=== PATIENT | male | born 1965 | race Caucasian/White ===

== ENCOUNTER 2016-11-30 10:10 | Emergency (ER) | payer OTHER ==
[2016-11-30 10:20] VITALS: BMI 39.1
[2016-11-30 11:14] LABS: EOSINOPHIL 0.3 % (0-4.5); MCH 30.5 pg (25.7-33.7); MCHC 33.8 g/dl (32.0-35.9); MEAN CELL VOLUME 90.3 fl (80-96); MEAN PLT VOLUME 7.6 fl (7.5-11.1); NEUTROPHILS 72.5 % (42.8-82.8); PLATELET COUNT 229 K/MM3 (134-434); RDW 13.9 % (11.9-15.9); WHITE BLOOD COUNT 9.8 K/mm3 (4.0-10.0)
[2016-11-30 11:47] LABS: ALBUMIN 3.8 g/dl (3.4-5.0); ALK PHOS 61 U/L (45-117); ANION GAP 8 (8-16); BILIRUBIN,TOTAL 0.8 mg/dL (0.2-1.0); CALCIUM 8.7 mg/dL (8.5-10.1); CO2 27 mmol/L (21-32); CREATININE 1.4 mg/dL (0.7-1.3); GLUCOSE,RANDOM 223 mg/dL (74-106); SGOT/AST 23 U/L (15-37); SGPT/ALT 48 U/L (12-78); TOT PROT 7.2 g/dl (6.4-8.2)
--- NOTE | 2016-11-30 12:11 | PDOC ---
History of Present Illness - General Chief Complaint: Pain Stated Complaint: ABD PAIN Time Seen by Provider: 11/30/16 11:03 - History of Present Illness Initial Comments: 11/30/16 12:10 Patient is a 51 year old male with history of DM2, htn and cholescysttis s/p cholecystectomy presents with 2 days of right upper quadrant pain and associated nausea and vomiting. Pain started as a burning right lower quadrant pain that woke patient from sleep. The pain moved to the right upper/epigastric region. It is currently episodic pressure, 7/10 at the worst, positional, improved with sitting or walking or use of a heating pad, worse when supine 11/30/16 12:33 Past History - Past Medical History Allergies/Adverse Reactions: Allergies Allergy/AdvReac Type Severity Reaction Status Date / Time No Known Allergies Allergy Verified 11/30/16 10:20 Home Medications: Ambulatory Orders Amlodipine/Atorvastatin [Amlodipine-Atorvast 10-40 mg] 1 each PO DAILY 11/30/16 Aspirin [ASA -] 81 mg PO DAILY 11/30/16 Carvedilol 12.5 mg PO BID 11/30/16 Ibuprofen 800 mg PO Q6H PRN #30 tablet 11/30/16 Metformin HCl 500 mg PO BID 11/30/16 Oxycodone HCl/Acetaminophen [Percocet 5-325 mg Tablet] 1 tab PO Q6H PRN #10 tablet MDD 4 11/30/16 Tamsulosin HCl [Flomax] 0.4 mg PO DAILY #14 cap.er.24h 11/30/16 Diabetes: Yes HTN: Yes - Surgical History Cholecystectomy: Yes - Psycho/Social/Smoking Cessation Hx Anxiety: No Suicidal Ideation: No Smoking History: Never smoked Hx Alcohol Use: Yes (SOCIAL) Drug/Substance Use Hx: No Substance Use Type: None *Physical Exam - Vital Signs Last Vital Signs Temp Pulse Resp BP Pulse Ox 99.1 F 91 H 20 144/82 98 11/30/16 10:17 11/30/16 10:17 11/30/16 10:17 11/30/16 10:11/30/16 10:17 ED Treatment Course - LABORATORY CBC & Chemistry Diagram: 11/30/16 11:00 11/30/16 11:00 - ADDITIONAL ORDERS Additional order review: Laboratory Results 11/30/16 11:00 Sodium 136 Potassium 4.0 Chloride 101 Carbon Dioxide 27 Anion Gap 8 BUN 18 Creatinine 1.4 H Creat Clearance w eGFR 53.64 Random Glucose 223 H Calcium 8.7 Total Bilirubin 0.8 AST 23 ALT 48 Alkaline Phosphatase 61 Total Protein 7.2 Albumin 3.8 Lipase 133 11/30/16 11:00 RBC 4.75 MCV 90.3 MCHC 33.8 RDW 13.9 MPV 7.6 Neutrophils % 72.5 Lymphocytes % 16.6 Monocytes % 9.6 Eosinophils % 0.3 Basophils % 1.0 - RADIOLOGY Radiograph Interpretation: 12/01/16 16:26 Impression: 4.5 mm obstructing stone in the proximal right ureter with mild right renal hydronephrosis and moderate stranding of the perinephric fat. L5-S1 mild degenerative disc disease with mild right paracentral and lateral disc bulge and posterior spur formation impinging right L5 nerve root. A preliminary report was forwarded by the [facility] service, [facility] [employer] PROVIDER Medical Decision Making - Medical Decision Making 11/30/16 12:57 51 yo male with RUQ/RLQ abdominal pain for two days with associated N/V, madie 10 years ago, t 99.1, patient has been vomiting and not eating for over a day. ddx: pancreatitis, appy, obstruction plan: CBC, CMP, Lipase Fluid bolus CBC: wnl, No leukocytosis Lipase wnl (133) Less concerning for infection CMP: elevated CR (1.4) in context of DM2, Glucose 223 CT with contrast 11/30/16 14:33 UA negative for infection, 4 RBC 11/30/16 18:09 Possible renal stone *DC/Admit/Observation/Transfer Diagnosis at time of Disposition: Renal colic, Renal calculus - Discharge Dispostion Disposition: HOME Condition at time of disposition: Improved Admit: No - Prescriptions Prescriptions: Tamsulosin HCl [Flomax] 0.4 mg PO DAILY #14 cap.er.24h Ibuprofen 800 mg PO Q6H PRN #30 tablet PRN Reason: Pain Oxycodone HCl/Acetaminophen [Percocet 5-325 mg Tablet] 1 tab PO Q6H PRN #10 tablet MDD 4 PRN Reason: Pain - Referrals Referrals: Shaw Fitzgerald MD [Primary Care Provider] - Carlos Alberto Delarosa MD [Staff Physician] - - Patient Instructions Printed Discharge Instructions: DI for Kidney Stones Additional Instructions: Thank you for trusting us with your health care today. I hope we were able to meet your expectations. The tests we ran show that you have a 5 mm kidney stone. As we discussed, stones this size will typically pass on their own. We are giving you prescriptions for some medication, flomax, that will help the stone pass and some other medication to help with the pain. You should first try the ibuprofen and if this fails to control your pain you can use the percocet. You should call and make an appointment with Dr. Reinaldo Delarosa ([phone]) in the next week for a follow up appointment. I have provided the report from the CT scan that you can provide to him. If you are unable to control your pain or you develop fever or become confused please return to the emergency room immediately. It has been our pleasure caring for you today and wish you the best of health. - Attestations Physician Attestion: 11/30/16 19:46 I, Dr. Jean Pierre Garcia, attest that this document has been prepared under my direction and personally reviewed by me in its entirety. I further attest, that it accurately reflects all work, treatment, procedures and medical decision -making performed by me.
--- NOTE | 2016-11-30 12:38 | PDOC ---
Attending Attestation - Resident Resident Name: Jean Pierre Garcia - ED Attending Attestation I have performed the following: I have examined & evaluated the patient, The case was reviewed & discussed with the resident, I agree w/resident's findings & plan, Exceptions are as noted - HPI HPI: 51 yo M history DM, HTN, madie s/p cholecystectomy (10 years ago), presents with RUQ abdominal pain, N/V for past 2 days. Pain started as RLQ, but is radiating to the RUQ. Described as a pressure, worse with position changes. Also worse with forward flexing the R hip. He has been using a heating pad for pain. No recent fever, chills. - Physicial Exam PE: GENERAL: Awake, alert, and fully oriented. Appears uncomfortable. HEAD: No signs of trauma EYES: PERRLA, EOMI, sclera anicteric, conjunctiva clear ENT: Auricles normal inspection, hearing grossly normal, nares patent, oropharynx clear without exudates. Dry mucosa NECK: Normal ROM, supple, no lymphadenopathy, JVD, or masses LUNGS: Breath sounds equal, clear to auscultation bilaterally. No wheezes, and no crackles HEART: Regular rate and rhythm, normal S1 and S2, no murmurs, rubs or gallops ABDOMEN: Soft, +RLQ and RUQ tenderness with guarding, hypoactive bowel sounds. No rebound. No masses EXTREMITIES: Normal range of motion, no edema. No clubbing or cyanosis. No cords, erythema, or tenderness NEUROLOGICAL: Cranial nerves II through XII grossly intact. Normal speech, normal gait. SKIN: Warm, Dry, normal turgor, no rashes or lesions noted. - Medical Decision Making Patient presents with RLQ tenderness radiating to RUQ x2 days. History of prior cholecystectomy. Poss retained stone (less likely given the surgery was 10 years ago) vs appy. Will obtain CT a/p.
[2016-11-30] MEDS ORDERED: SODIUM CHLORIDE 1,000 ML IV STA (12:53)
[2016-11-30 14:22] LABS: URINE APPEARANCE CLEAR; URINE BILIRUBIN NEGATIVE (NEGATIVE); URINE COLOR LTYELLOW; URINE GLUCOSE (UA) 2+ (NEGATIVE); URINE KETONE NEGATIVE (NEGATIVE); URINE LEUK ESTERASE NEGATIVE (NEGATIVE); URINE NITRITE NEGATIVE (NEGATIVE); URINE PROTEIN NEGATIVE (NEGATIVE); URINE UROBILINOGEN NEGATIVE mg/dL (0.2-1.0)
[2016-11-30 14:26] LABS: URINE BLOOD 1+ (NEGATIVE)
[2016-11-30 14:27] LABS: URINE RBC 4 /hpf (0-3); URINE WBC <1 /hpf (3-5)
[2016-11-30] MEDS ORDERED: morphine CARPU-JECT 4 MG/1 ML DISP.SYRIN IVPUSH ONE (16:40)
[2016-11-30] MEDS ORDERED: morphine CARPU-JECT 4 MG/1 ML DISP.SYRIN ONE (16:41)
[2016-11-30 19:19] VITALS: BP 151/92; PULSE 84; TEMP 98
== END 2016-11-30 19:54 | disposition home or self-care (01) ==
LOC: JER 10:10
PROC: 3E0337Z Introduction of Electrolytic and Water Balance Substance into Peripheral Vein, Percutaneous Approach (ICD-10-PCS; principal; 2016-11-30)
PROC: 3E033NZ Introduction of Analgesics, Hypnotics, Sedatives into Peripheral Vein, Percutaneous Approach (ICD-10-PCS; 2016-11-30)
DX: N20.0 Calculus of kidney (principal); I10 Essential (primary) hypertension; E11.9 Type 2 diabetes mellitus without complications; Z79.84 Long term (current) use of oral hypoglycemic drugs
CPT/HCPCS: 36415; 74176-TC; 80053; 81003; 81015; 83690; 85025; 96361; 96374; 99283-25; Q9967